=== PATIENT | male | born 1965 | race Caucasian/White ===

== ENCOUNTER → 2016-08-14 | Outpatient (CLI) | payer OTHER | LOC: BMCIMAGING 07:32 | PROVIDERS: ATTEND Physician Assistant | DX: B18.2 Chronic viral hepatitis C (principal); K82.8 Other specified diseases of gallbladder ==

== ENCOUNTER 2017-05-07 20:49 | Inpatient (IN) | payer OTHER ==
[2017-05-07] MEDS ORDERED: HYDROmorphONE/DILAUDID 1 MG/ML INJ IVP ONE ×2 (21:41→23:32)
[2017-05-07] MEDS ORDERED: ceFAZolin 2 GM in D5W 100 ML IV ONE (22:39)
--- NOTE | 2017-05-07 23:02 | EDPHY ---
H & P Stated Complaint: poss hernia right side groin pain Time Seen by Provider: 05/07/17 21:36 HPI/ROS: Chief complaint: Possible hernia History of present illness: This is a 51-year-old male, currently incarcerated brought to the emergency department by police for evaluation of a possible hernia. Patient reports he was going to the bathroom when he sneezes. He felt pain in his right inguinal region and scrotum. He has noted significant swelling. He is concerned this is a hernia. Pain is persistent. He denies other associated signs or symptoms. He has never had a hernia or hernia surgery before. Review of systems: A 10 point review of systems was obtained and other than described above was negative - Personal History Current Tetanus/Diphtheria Vaccine: Yes Current Tetanus Diphtheria and Acellular Pertussis (TDAP): Yes Tetanus Vaccine Date: <10 years - Medical/Surgical History Hx Asthma: No Hx Chronic Respiratory Disease: No Hx Diabetes: No Hx Cardiac Disease: No Hx Renal Disease: No Hx Cirrhosis: No Hx Alcoholism: No Hx HIV/AIDS: No Hx Splenectomy or Spleen Trauma: No Other PMH: pmh:none. psh: right hand - Social History Smoking Status: Never smoked - Physical Exam Exam: General Appearance: Alert, nontoxic. Eyes: Pupils equal and round no pallor or injection. ENT, Mouth: Mucous membranes moist. Respiratory: There are no retractions, lungs are clear to auscultation. Cardiovascular: Regular rate and rhythm. Gastrointestinal: Abdomen is soft and non tender, no masses, bowel sounds normal. Genitourinary: Swelling in the scrotum and right inguinal region consistent with a inguinal hernia Neurological: Alert and oriented x4. Strength and sensation intact and symmetrical. Skin: Warm and dry, no rashes. Musculoskeletal: Neck is supple non tender. Extremities are symmetrical, full range of motion. Psychiatric: Patient is oriented X 3, there is no agitation. Constitutional: Initial Vital Signs Temperature (C) 36.9 C 05/07/17 20:51 Heart Rate 90 05/07/17 20:51 Respiratory Rate 16 05/07/17 20:51 Blood Pressure 136/91 H 05/07/17 20:51 O2 Sat (%) 99 05/07/17 20:51 O2 Delivery Mode Room Air Allergies/Adverse Reactions: No Known Allergies Allergy (Verified 05/07/17 20:55) Home Medications: Medication Instructions Recorded NK [No Known Home Meds] 05/07/17 Medical Decision Making ED Course/Re-evaluation: Patient discussed with my secondary supervising physician Dr. Yaw Aldana. Patient presents to the emergency department concerned he has a hernia. He does appear to have an incarcerated inguinal hernia. On-call surgeon, Dr. Radha Howe is consulted. She will take the patient to the operating room this evening. The plan has been discussed with the patient voiced understanding and agreement with it. Differential Diagnosis: Included but not limited to direct and indirect hernia, incarcerated hernia, strangulated hernia - Data Points Medications Given: Discontinued Medications Hydromorphone HCl (Dilaudid) 1 mg IVP EDNOW ONE Stop: 05/07/17 21:42 Last Admin: 05/07/17 21:54 Dose: 1 mg Departure - Departure Disposition: [facility] Inpatient Acute Clinical Impression: Hernia Condition: Good Referrals: NONE *PRIMARY CARE P,. [Primary Care Provider] - As per Instructions
--- NOTE | 2017-05-07 23:32 | GHP ---
[f rep st] HISTORY AND PHYSICAL DATE OF ADMISSION: 05/07/2017 REFERRING PHYSICIAN: Yaw Campbell MD CHIEF COMPLAINT: Incarcerated right inguinal hernia. HISTORY OF PRESENT ILLNESS: A 51-year-old, who was brought to the emergency department by the police for evaluation of a possible hernia. He is currently incarcerated. He was going the restroom when all of a sudden it stopped and he felt abrupt pain in his right inguinal region and scrotum. Nothing has made the pain better. He has tried Tylenol. He has never had this problem before. PAST MEDICAL HISTORY: None. PAST SURGICAL HISTORY: Right hand surgery. SOCIAL HISTORY: He is incarcerated. He has a 1-year-old daughter. He does not use tobacco products . REVIEW OF SYSTEMS: 10-point review of systems negative. PHYSICAL EXAMINATION: VITAL SIGNS: 36.9, 90, 136/91, 16, 99%. GENERAL: Pleasant, well-nourished, well-groomed man, lying on bed. He is in obvious discomfort. HEENT: Normocephalic. No gross heari ng deficits. Mucous membranes moist. Pupils equal and round. No scleral icterus. LUNGS: Clear to auscultation bilaterally. No increased work of breathing. CARDIAC: Regular rate. No peripheral e nikolay. ABDOMEN: Bowel sounds are present. It is soft. : Normal male genitalia. He does have an obvious right inguinal hernia that is nonreducible. It is very painful. SKIN: Warm and dry. He d oes have tattoos. MUSCULOSKELETAL: Normal nails. PSYCH: Mood and affect normal. NEURO: Grossly intact. IMPRESSION AND PLAN: The patient is a 51-year-old with an incarcerated right inguinal hernia. I maris l take him to the operating room for an open right inguinal hernia repair with mesh. The risks and b enefits, including, but not limited to, stroke, heart attack, , blood clots, infection, bleeding , damage to surrounding structures, including losing the testicle were discussed. He had his questio ns answered to his satisfaction and signed the informed consent. /[id number]/MODL
[2017-05-07] MEDS ORDERED: LIDOCAINE 1% 300 MG/30 ML SDV ONE (23:40)
[2017-05-07] MEDS ORDERED: BUPIVACAINE 0.5% 30 ML SDV ONE (23:41)
--- NOTE | 2017-05-08 00:31 | CPEKG ---
Heart Rate: 73 RR Interval: 822 P-R Interval: 128 QRSD Interval: 94 QT Interval: 432 QTC Interval: 476 P [place]: 31 QRS [place]: 0 T Wave [place]: 76 EKG Severity - ABNORMAL ECG - EKG Impression: SINUS RHYTHM EKG Impression: PROBABLE LEFT VENTRICULAR HYPERTROPHY EKG Impression: BORDERLINE PROLONGED QT INTERVAL Electronically Signed By: Niraj Garcia 12-May-2017 10:23:13
[2017-05-08 00:45] LABS: PLATELET COUNT 252 10^3/uL (150-400)
--- NOTE | 2017-05-08 00:47 | PDANEPAE ---
ANE History of Present Illness Patient presents for emergent incarcerated right inguinal hernia repair ANE Past Medical History - Pulmonary History Hx Oxygen in Use at Home: No Hx Sleep Apnea: No - Endocrine History Hx Diabetes: No ANE Review of Systems Review of Systems: ANE Patient History - Allergies Allergies/Adverse Reactions: No Known Allergies Allergy (Verified 05/07/17 20:55) - Home Medications Home Medications: NK [No Known Home Meds] 05/07/17 [Last Taken Unknown] - NPO status NPO Since - Liquids (Date): 05/07/17 NPO Since - Liquids (Time): 16:15 NPO Since - Solids (Date): 05/07/17 NPO Since - Solids (Time): 16:15 - Anes Hx Anes Hx: no prior problems - Smoking Hx Smoking Status: Never smoked ANE Labs/Vital Signs - Labs Result Diagrams: 05/08/17 00:00 05/08/17 00:00 - Vital Signs Blood Pressure: 115/86 Heart Rate: 75 Respiratory Rate: 16 O2 Sat (%): 95 Height: 187.96 cm Weight: 90.718 kg ANE Physical Exam - Airway Neck exam: FROM Mallampati Score: Class 1 Mouth exam: normal dental/mouth exam - Pulmonary Pulmonary: no respiratory distress - Cardiovascular Cardiovascular: regular rate and rhythym - ASA Status ASA Status: I ANE Anesthesia Plan Anesthesia Plan: general endotracheal anesthesia (RBA discussed)
[2017-05-08] MEDS ORDERED: LR 1,000 ML IV ONE (00:59)
[2017-05-08] MEDS ORDERED: CEFAZOLIN 1 GM/DEXTROSE/50 ML BAG IV ONE (01:00)
[2017-05-08] MEDS ORDERED: fentaNYL 100 MCG/2 ML INJ ONE ×3 (01:03→02:32)
[2017-05-08] MEDS ORDERED: PROPOFOL 200 MG/20 ML VIAL ONE (01:03)
[2017-05-08] MEDS ORDERED: OXYCODONE/APAP 5/325 TAB PO PRN (01:54)
[2017-05-08] MEDS ORDERED: LR 500 ML IV PRN (01:54)
[2017-05-08] MEDS ORDERED: HYDROCODONE/APAP 5/325 TAB PO PRN (01:54)
[2017-05-08] MEDS ORDERED: NALOXONE HCL 0.4 MG/ML INJ IVP PRN (01:54)
[2017-05-08] MEDS ORDERED: ONDANSETRON 4 MG/2 ML VIAL IVP PRN ×2 (01:54→02:28)
[2017-05-08] MEDS ORDERED: SUGAMMADEX SODIUM 200 MG/2 ML VIAL IVP ONE (02:11)
[2017-05-08] MEDS ORDERED: ONDANSETRON 4 MG/2 ML VIAL ONE (02:12)
[2017-05-08] MEDS ORDERED: DEXAMETHASONE 4 MG/ML VIAL ONE (02:12)
--- NOTE | 2017-05-08 02:27 | POSTOPPROG ---
Post Op Note Date of Operation: 05/08/17 Surgeon: Radha Howe Anesthesiologist: jeff Anesthesia: GET(General Endotracheal) Pre-op Diagnosis: incarcerated RIH Post-op Diagnosis: Same Indication: 51 yo with painful incarcerated RIH Procedure: open RIH with mesh Findings: Large hernia sac Inf/Abcess present in the surg proc area at time of surgery?: No EBL: Minimal Specimen(s): hernia sac
[2017-05-08] MEDS: fentaNYL 100 MCG/2 ML INJ IVP PRN ×2 (02:34→02:40)
--- NOTE | 2017-05-08 02:34 | POSTANESTH ---
Post Anesthetic Evaluation Cardiovascular Status: Similar to Pre-Op Cond Respiratory Status: Similar to Pre-op Cond. Level of Consciousness/Mental Status: Alert and Oriented Pain Control: Adequate, Prn Tx Ordered Nausea/Vomiting Control: Adequate, Prn Tx Ordered Complications Possibly Related to Anesthesia: None Noted
[2017-05-08] MEDS: KETOROLAC 15 MG/1 ML SDV IVP SCH ×2 (05:38→11:49)
[2017-05-08 06:34] VITALS: RESP 16
[2017-05-08] MEDS: HYDROCODONE/APAP 5/325 TAB PO PRN ×2 (06:37→11:50)
[2017-05-08 08:39] VITALS: BP 113/73; PULSE 88; TEMP 97.4; O2SAT 94
[2017-05-08] MEDS ORDERED: FLU VACC QS 2017-18 (3YR+)/PF 0.5 ML SYR (FLUARIX QUAD) IM ONE (08:41)
--- NOTE | 2017-05-08 10:17 | SOAPPROG ---
SOAP Progress Note Assessment/Plan: Assessment/Plan: 51yo M POD#1 s/p open right inguinal hernia repair with mesh for incarcerated hernia Voiding spontaneously Avoid heavy lifting, pushing, pulling >15lbs x 6 weeks S: pain when he got up to go to the bathroom O: laying in bed, comfortable, NAD No increased WOB No scrotal or penile swelling or ecchymosis Dressing intact Objective: Vital Signs Temp Pulse Resp BP Pulse Ox 36.3 C 88 16 113/73 94 05/08/17 08:00 05/08/17 08:00 05/08/17 08:00 05/08/17 08:00 05/08/17 08:00 Laboratory Results 05/08/17 00:00 05/08/17 00:00 05/07/17 05/08/17 05/09/17 05:59 05:59 05:59 Intake Total 855 Output Total 10 Balance 845 ICD10 Worksheet Patient Problems: Problems Problem Status Onset Hernia Acute
--- NOTE | 2017-05-08 12:50 | ASDISCHSUM ---
Discharge Information Plan Status:Home with No Needs Medically Cleared to Leave: Discharge Date:05/08/2017 12:26 PM CM D/C Disposition:Law Enforcement/Court/Fpc ADT D/C Disposition:Law Enforcement/Court/Fpc Projected Discharge Date:05/08/2017 12:26 PM Transportation at D/C: Discharge Delay Reason: Follow-Up Date:05/08/2017 12:26 PM Discharge Slot: Final Diagnosis: Placement Information Patient Contact Information Contact Name:MARIS Relationship: Address:[address] [address] City:[place] Alternate Phone: [facility]/Zip Code:[place] [address] Email: Financial Information Financial Class:Commercial Primary Plan Desc:[facility] Primary Plan Number:[id number] Secondary Plan Desc: Secondary Plan Number: Assessment Information [facility] CM Progress Note CM Note CM Note Notes: Pt medically stable for return to [facility]. Date Signed: 05/08/2017 12:50 PM Electronically Signed By:SOFIA Sharpe Intervention Information
== END 2017-05-08 12:26 | DRG 355 ==
LOC: EEVIPCON 20:49 → OBSVTOIN 22:59 → F3N 05-08 00:45
PROVIDERS: ADMIT Surgery; ATTEND Surgery
PROC: 0WUF0JZ Supplement Abdominal Wall with Synthetic Substitute, Open Approach (ICD-10-PCS; principal; 2017-05-08 01:03)
DX: K40.30 Unilateral inguinal hernia, with obstruction, without gangrene, not specified as recurrent (principal); Z23 Encounter for immunization
CPT/HCPCS: 96374; C1781; G0008; J0690; J1100; J1170; J1885; J2405; J2704; J3010

== ENCOUNTER 2017-05-30 07:16 | Emergency (ER) | payer SELFPAY ==
[2017-05-30 07:23] VITALS: TEMP 98.8
[2017-05-30] MEDS ORDERED: ONDANSETRON 4 MG/2 ML VIAL IVP ONE (07:35)
[2017-05-30] MEDS ORDERED: fentaNYL 100 MCG/2 ML INJ IVP ONE (07:35)
[2017-05-30] MEDS ORDERED: NS 1,000 ML IV ONE (07:35)
--- NOTE | 2017-05-30 07:56 | EDPHY ---
H & P Stated Complaint: lower abdo pain since last night, hernia surgery 3 weeks ago. Time Seen by Provider: 05/30/17 07:35 HPI/ROS: CHIEF COMPLAINT: Testicular pain HISTORY OF PRESENT ILLNESS: The patient is a 51 y/o male complaining of severe testicular pain onset this morning around 03:00, about 4.5 hours ago. He was admitted three weeks ago on 05/07/17 for an incarcerated right inguinal hernia that required surgical repair with mesh. He was discharged back to assisted following that surgery. It's unclear if he's had any issues following the surgery until early this morning when he developed severe bilateral testicular pain. He describes the pain as squeezing and says it "comes in spasms." He has associated lower abdominal pain that radiates to his testicles. The pain is too severe for him to walk. He denies fever, chills, urinary symptoms, vomiting, diarrhea, recent illness, or recent trauma. History somewhat limited as patient is mumbling and intermittently will stop answering questions. REVIEW OF SYSTEMS: Constitutional: No fever, no chills Eyes: No visual changes ENT: No sore throat Respiratory: No cough, no shortness of breath Cardiac: No chest pain Gastrointestinal: No nausea, no vomiting, +abdominal pain Genitourinary: see HPI Musculoskeletal: No leg pain or swelling Skin: No rash Neurological: No headache, no numbness, no weakness Psychiatric: No depression - Personal History Current Tetanus Diphtheria and Acellular Pertussis (TDAP): Yes Tetanus Vaccine Date: <10 years - Medical/Surgical History PMH: PMH includes: 1. Right inguinal hernia repair with mesh 2017 2. Right hand surgery Prior medical records reviewed including admission 05/07/17 for hernia repair. Hx Asthma: No Hx Chronic Respiratory Disease: No Hx Diabetes: No Hx Cardiac Disease: No Hx Renal Disease: No Hx Cirrhosis: No Hx Alcoholism: No Hx HIV/AIDS: No Hx Splenectomy or Spleen Trauma: No Other PMH: psh: right hand. Right groin hernia surgery Apr 2017. - Social History Smoking Status: Never smoked Additional Social History: Recently incarcerated. Denies tobacco use. Reports he has a friend to stay with. - Physical Exam Exam: General Appearance: Alert, no distress, appears uncomfortable Eyes: Pupils equal and round, no conjunctival pallor or injection ENT, Mouth: Mucous membranes moist Neck: Normal inspection Respiratory: Lungs are clear to auscultation Cardiovascular: Regular rate and rhythm Gastrointestinal: Abdomen is soft, lower abdominal tenderness, fullness along both inguinal areas, tenderness to right inguinal area : Bilateral testicular tenderness with scrotal swelling and faint overlying erythema Neurological: A&O, nonfocal, normal gait Skin: Warm and dry, no rash Extremities: Nontender, no pedal edema Psychiatric: Anxious, odd affect Constitutional: Initial Vital Signs Temperature (C) 37.1 C 05/30/17 07:18 Heart Rate 81 05/30/17 07:18 Respiratory Rate 20 05/30/17 07:18 Blood Pressure 162/108 H 05/30/17 07:18 O2 Sat (%) 99 05/30/17 07:18 O2 Delivery Mode Room Air O2 (L/minute) 2 Allergies/Adverse Reactions: No Known Allergies Allergy (Verified 05/07/17 20:55) Home Medications: Medication Instructions Recorded Acetaminophen [Tylenol 325mg (*)] 325 - 650 mg PO Q6HRS PRN 05/08/17 Sulfamethox/Tmp 800/160 mg 1 tab PO BID #14 tab 05/30/17 [Bactrim Ds] Medical Decision Making - Diagnostics Imaging Results: Imaging Impressions Testicular Ultrasound 05/30/17 07:52 Impression: 1. Thickened right scrotal skin, likely from postsurgical swelling in the inguinal region. 2. Query thrombosed outflow vein of the right testicle. This would correlate to pain, as well as lack of Dopplerable venous flow in the right testicle. 3. Positive arterial flow on both sides. 4. Small right testicular hydrocele. Findings and recommendations discussed with Dr. Dariela Del Rosario at 0900 hours on May 30, 2017. Final report concurs with initial preliminary interpretation. Comment: The patient may improve with medical therapy, such as pain control and ibuprofen or other anti-inflammatories. If pain persists, repeat testicular ultrasound is suggested to check status of potential worsening testicular swelling, if patient indeed has venous thrombosis. Imaging: Discussed imaging studies w/ subsurface augmentee operator Radiologist ED Course/Re-evaluation: This is an anxious 51 y/o male who presents with acute bilateral testicular pain and scrotal swelling onset this morning around 03:00, 4.5 hours ago. He has bilateral testicular tenderness with scrotal swelling and erythema, tenderness in his right inguinal area, and lower abdominal tenderness. He is afebrile here. Plan for IV, labs, UA, pain management, and testicular US. 1L IV NS, 4mg IV Zofran, and 100mcg IV Fentanyl administered. US shows testicular vein thrombosis with good arterial flow. Labs unremarkable. Reassessed patient and discussed results with him. He is sleeping and snoring upon my entrance to the room and needed to be awakened He says his pain is better. He is unsure if he has a follow up appointment scheduled with Dr. Howe , the surgeon that performed his hernia repair. He continues to seemingly fall asleep during my discussion with him. He tells me he has a place to stay with a friend for the next few weeks. 30mg IV Toradol ordered. 0937: Consulted with Dr. Howe, surgeon. She saw patient in her clinic 10 days ago for the same complaint and recommended an ultrasound. She recommends treating with Bactrim and following up with her in the office in one week. Discussed this plan with the patient. Recommended ibuprofen for pain. Return precautions discussed. Differential Diagnosis: Differential diagnosis includes though it is not limited to testicular torsion epididymitis, hydrocele, abscess, recurrent inguinal hernia, scrotal cellulitis. - Data Points Laboratory Results: Laboratory Results 05/30/17 07:45 05/30/17 07:40 05/30/17 05/30/17 07:45 07:40 WBC 7.05 10^3/uL 10^3/uL (3.80-9.50) RBC 5.15 10^6/uL 10^6/uL (4.40-6.38) Hgb 16.3 g/dL g/dL (13.7-17.5) Hct 45.5 % % (40.0-51.0) MCV 88.3 fL fL (81.5-99.8) MCH 31.7 pg pg (27.9-34.1) MCHC 35.8 g/dL g/dL (32.4-36.7) RDW 13.0 % % (11.5-15.2) Plt Count 310 10^3/uL 10^3/uL (150-400) MPV 9.6 fL fL (8.7-11.7) Neut % (Auto) 69.6 % % (39.3-74.2) Lymph % (Auto) 22.4 % % (15.0-45.0) Hooker % (Auto) 7.2 % % (4.5-13.0) Eos % (Auto) 0.4 % L % (0.6-7.6) Baso % (Auto) 0.1 % L % (0.3-1.7) Nucleat RBC Rel Count 0.0 % % (0.0-0.2) Absolute Neuts (auto) 4.90 10^3/uL 10^3/uL (1.70-6.50) Absolute Lymphs (auto) 1.58 10^3/uL 10^3/uL (1.00-3.00) Absolute Monos (auto) 0.51 10^3/uL 10^3/uL (0.30-0.80) Absolute Eos (auto) 0.03 10^3/uL 10^3/uL (0.03-0.40) Absolute Basos (auto) 0.01 10^3/uL L 10^3/uL (0.02-0.10) Absolute Nucleated RBC 0.00 10^3/uL 10^3/uL (0-0.01) Immature Gran % 0.3 % % (0.0-1.1) Immature Gran # 0.02 10^3/uL 10^3/uL (0.00-0.10) Sodium 141 mEq/L mEq/L (135-145) Potassium 4.7 mEq/L mEq/L (3.5-5.2) Chloride 104 mEq/L mEq/L (97-110) Carbon Dioxide 23 mEq/l mEq/l (22-31) Anion Gap 14 mEq/L mEq/L (8-16) BUN 27 mg/dL H mg/dL (7-23) Creatinine 1.0 mg/dL mg/dL (0.7-1.3) Estimated GFR > 60 Glucose 120 mg/dL H mg/dL (70-100) Calcium 10.3 mg/dL mg/dL (8.5-10.4) Medications Given: Discontinued Medications Fentanyl (Sublimaze) 100 mcg IVP EDNOW ONE Stop: 05/30/17 07:36 Last Admin: 05/30/17 07:44 Dose: 100 mcg Sodium Chloride (Ns) 1,000 mls @ 0 mls/hr IV ONCE ONE PRN Reason: Wide Open Stop: 05/30/17 07:36 Last Admin: 05/30/17 07:44 Dose: 1,000 mls Ketorolac Tromethamine (Toradol) 30 mg IVP EDNOW ONE Stop: 05/30/17 09:22 Last Admin: 05/30/17 09:49 Dose: 30 mg Ondansetron HCl (Zofran) 4 mg IVP EDNOW ONE Stop: 05/30/17 07:36 Last Admin: 05/30/17 07:44 Dose: 4 mg Trimethoprim/Sulfamethoxazole (Bactrim Ds) 1 ea PO EDNOW ONE PRN Reason: Protocol Stop: 05/30/17 09:41 Last Admin: 05/30/17 09:51 Dose: 1 ea Departure - Departure Disposition: Home, Routine, Self-Care Clinical Impression: thrombosis of testicular vein Condition: Good Instructions: Sulfamethoxazole/Trimethoprim (By mouth), Testicle Pain (ED) Additional Instructions: 1. Take Bactrim as prescribed. Be sure to complete the entire prescription. 2. Take 600mg ibuprofen every 6-8 hours as needed for pain over the next few days. 3. Follow up with Dr. Howe's office in one week. Please call today to make this appointment. 4. Return to the ED for worsening of condition. Referrals: Radha Howe MD [Medical Doctor] - As per Instructions Prescriptions: Sulfamethox/Tmp 800/160 mg [Bactrim Ds] 1 tab PO BID #14 tab Report Scribed for: Dariela Del Rosario Report Scribed by: Veronica Hanna Date of Report: 05/30/17 Time of Report: 07:56 Physician Review and Approval Statement: 05/30/17 07:56 Portions of this note were transcribed by a medical office secretary. I personally performed a history, physical exam, medical decision making, and confirmed accuracy of information the transcribed note.
[2017-05-30 07:59] LABS: PLATELET COUNT 310 10^3/uL (150-400)
[2017-05-30] MEDS ORDERED: KETOROLAC 15 MG/1 ML SDV IVP ONE (09:21)
[2017-05-30] MEDS ORDERED: SULFAMETHOX/TMP 800/160 MG 1 TAB PO ONE (09:40)
[2017-05-30] MEDS ORDERED: KETOROLAC 15 MG/1 ML SDV ONE (09:46)
[2017-05-30 09:57] VITALS: BP 145/101; PULSE 85; RESP 18; O2SAT 97
== END 2017-05-30 10:11 | disposition home or self-care (01) ==
DX: N50.1 Vascular disorders of male genital organs (principal)
CPT/HCPCS: 96374; J1885; J2405; J3010

== ENCOUNTER 2017-05-31 17:33 | Emergency (ER) | payer SELFPAY ==
[2017-05-31 18:31] LABS: PLATELET COUNT 265 10^3/uL (150-400)
[2017-05-31] MEDS ORDERED: KETOROLAC 30 MG/1 ML SDV IVP ONE (18:56)
[2017-05-31] MEDS ORDERED: HYDROmorphONE/DILAUDID 1 MG/ML INJ IVP ONE (19:33)
[2017-05-31 20:39] VITALS: RESP 18
[2017-05-31] MEDS ORDERED: HYDROCOD/APAP 5/325 PREPACK#6 BTL TAKEHOME ONE (21:26)
--- NOTE | 2017-05-31 21:26 | EDPHY ---
H & P Time Seen by Provider: 05/31/17 18:58 HPI/ROS: HPI Postoperative abdominal pain. 51-year-old male by private vehicle with girlfriend. This patient underwent a right-sided incarcerated inguinal hernia repair by Dr. Radha Howe on May 07. At that time he was being discharged to shelter. He was not prescribe pain medications. He was then seen in the emergency department yesterday complaining of testicular pain. 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 He was prescribed NSAIDs for this. He was then discharged. He returns to the emergency department complaining of bilateral lower testicular pain as well as sharp pain in his right lower inguinal area. He reports onset of pain was about 2 hr ago. ROS: Constitutional: No fever, no chills. No weakness. Respiratory: No cough. No shortness of breath. Cardiac: No chest pain, no palpitations. Gastrointestinal: As above, no vomiting, no diarrhea. Genitourinary: No hematuria. No dysuria or increased frequency with urination. As above. Musculoskeletal: No back pain. No neck pain. No myalgias or arthralgias. Skin: No rashes. Neurological: No focal weakness or altered sensation. Past medical history: As above. Social history: Here with his girlfriend. Denies alcohol. Nonsmoker. As above. Physical Exam: General Appearance: Note the patient had been seen by Dr. Radha Howe prior to my evaluation. He was given 30 mg of IV Toradol and 0.5 mg of IV hydromorphone. Alert, at this time his pain is well controlled. He is not in any distress. This patient is responding to questions appropriately and in full sentences. This patient appears well-hydrated and well-nourished. Eyes: Pupils equal and round no pallor or injection. No lid edema, erythema or injection. Respiratory: There are no retractions, lungs are clear to auscultation with good air movement bilaterally. Cardiovascular: Regular rate and rhythm. No murmur. Gastrointestinal: Linear, clean dry and intact inguinal surgical incision healing well, abdomen is soft with mild tenderness over the surgical incision on palpation, no masses, bowel sounds present. No focal tenderness at McBurney' s point. No Clark sign. Testicular exam: He has some thickening and swelling of the lower scrotum which is commonly seen after a inguinal hernia surgical procedure. He has vague tenderness to this area of his lower testicles bilaterally. Normal testicular lie. Normal cremasteric reflex. No clinical evidence of torsion. No significant tenderness over the epididymis bilaterally. No masses appreciated. Normal circumcised penis. Neurological: Motor sensory function is grossly intact. Cranial nerves are normal. Gait is normal. Skin: Warm and dry, no rashes. Musculoskeletal: Neck is supple and nontender. Extremities are symmetrical. All joints range without pain or impingement. Psychiatric: No agitation. No depression. Database: EKG: Imaging: Testicular ultrasound: No torsion. Please see above noted report for further details. Results were discussed with staff radiologist Dr. Lester Ruiz. Procedures: Emergency department course: His vital signs reviewed and are normal. As noted he was seen by Dr. Howe in the emergency department prior to my evaluation of him. He was given the above- noted pain medications. On my evaluation is pain was well controlled. Testicular ultrasound was obtained. 9:15 p.m., I spoke with Dr. Howe. Results of his ultrasound was discussed. We both feel he is safe for discharge. She will see him in her office this week on follow-up. I will prescribe him Vicodin for pain control. 9:35 p.m., patient re-evaluated. He appears comfortable at this time. Results of his ultrasound discussed with him. I do not feel at this time he requires an antibiotic for treatment of epididymitis. I did not feel his pain is related to an infectious etiology. He feels comfortable going home with his girlfriend. He understands his follow-up with Dr. Radha Howe next week. Pain medication dosing discussed with him. Return to emergency department precautions were thoroughly reviewed. All of his questions were answered. He was discharged in good condition with his girlfriend. She is driving. Differential Diagnosis: The differential diagnosis on this patient includes but is not limited to post inguinal hernia surgical pain, possible epididymitis, history of testicular vein thrombosis. Testicular torsion, postsurgical complication unlikely. This represents a partial list of diagnoses considered. These considerations are based on history, physical exam, past history, reassessment and diagnostic testing. Smoking Status: Never smoked Constitutional: Initial Vital Signs Temperature (C) 36.3 C 05/31/17 17:41 Heart Rate 84 05/31/17 17:41 Respiratory Rate 22 H 05/31/17 17:41 Blood Pressure 138/74 H 05/31/17 17:41 O2 Sat (%) 96 05/31/17 17:41 O2 Delivery Mode Room Air Allergies/Adverse Reactions: No Known Allergies Allergy (Verified 05/07/17 20:55) Home Medications: Medication Instructions Recorded Acetaminophen [Tylenol 325mg (*)] 325 - 650 mg PO Q6HRS PRN 05/08/17 Sulfamethox/Tmp 800/160 mg 1 tab PO BID #14 tab 05/30/17 [Bactrim Ds] Hydrocodone/APAP 5/325 [Howells 1 - 2 tab PO Q4-6PRN PRN #14 tab 05/31/17 5/325 (*)] Medical Decision Making - Diagnostics Imaging Results: Imaging Impressions Testicular Ultrasound 05/31/17 19:34 Impression: 1. Probable bilateral epididymitis with possible inflammation of the right spermatic cord. 2. Additional findings, as above. Findings discussed with Librado Magaña MD, on 05/31/2017 at 20:42. - Data Points Laboratory Results: Laboratory Results 05/31/17 18:20 05/31/17 18:20 05/31/17 05/31/17 18:20 18:20 WBC 4.84 10^3/uL 10^3/uL (3.80-9.50) RBC 4.88 10^6/uL 10^6/uL (4.40-6.38) Hgb 15.4 g/dL g/dL (13.7-17.5) Hct 42.6 % % (40.0-51.0) MCV 87.3 fL fL (81.5-99.8) MCH 31.6 pg pg (27.9-34.1) MCHC 36.2 g/dL g/dL (32.4-36.7) RDW 13.2 % % (11.5-15.2) Plt Count 265 10^3/uL 10^3/uL (150-400) MPV 9.6 fL fL (8.7-11.7) Neut % (Auto) 59.2 % % (39.3-74.2) Lymph % (Auto) 32.0 % % (15.0-45.0) [place] % (Auto) 7.0 % % (4.5-13.0) Eos % (Auto) 1.0 % % (0.6-7.6) Baso % (Auto) 0.6 % % (0.3-1.7) Nucleat RBC Rel Count 0.0 % % (0.0-0.2) Absolute Neuts (auto) 2.86 10^3/uL 10^3/uL (1.70-6.50) Absolute Lymphs (auto) 1.55 10^3/uL 10^3/uL (1.00-3.00) Absolute Monos (auto) 0.34 10^3/uL 10^3/uL (0.30-0.80) Absolute Eos (auto) 0.05 10^3/uL 10^3/uL (0.03-0.40) Absolute Basos (auto) 0.03 10^3/uL 10^3/uL (0.02-0.10) Absolute Nucleated RBC 0.00 10^3/uL 10^3/uL (0-0.01) Immature Gran % 0.2 % % (0.0-1.1) Immature Gran # 0.01 10^3/uL 10^3/uL (0.00-0.10) Sodium 139 mEq/L mEq/L (135-145) Potassium 4.2 mEq/L mEq/L (3.5-5.2) Chloride 104 mEq/L mEq/L (97-110) Carbon Dioxide 24 mEq/l mEq/l (22-31) Anion Gap 11 mEq/L mEq/L (8-16) BUN 20 mg/dL mg/dL (7-23) Creatinine 1.0 mg/dL mg/dL (0.7-1.3) Estimated GFR > 60 Glucose 125 mg/dL H mg/dL (70-100) Calcium 9.4 mg/dL mg/dL (8.5-10.4) Medications Given: Discontinued Medications Hydrocodone Bitart/Acetaminophen (Howells 5/325mg Prepack#6) 1 btl TAKEHOME EDNOW ONE Stop: 05/31/17 21:27 Last Admin: 05/31/17 21:37 Dose: 1 btl Hydromorphone HCl (Dilaudid) 0.5 mg IVP EDNOW ONE Stop: 05/31/17 19:34 Last Admin: 05/31/17 19:37 Dose: 0.5 mg Ketorolac Tromethamine (Toradol) 30 mg IVP ONCE ONE Stop: 05/31/17 18:57 Last Admin: 05/31/17 19:12 Dose: 30 mg Departure - Departure Disposition: Home, Routine, Self-Care Clinical Impression: Testicular pain, Lower abdominal pain, Status post right inguinal hernia repair Condition: Good Instructions: Hydrocodone/Acetaminophen (By mouth), Acute Abdominal Pain (DC), Testicle Pain (ED) Additional Instructions: Read and follow provided instructions. Follow-up with Dr. Radha Howe, this week for re-evaluation as discussed. Call her office Saturday morning for appointment time. Ibuprofen dosin mg every 6 hours with meals for the next 3 days only. Take only as needed for pain. Howells/Percocet dosin-2 every 4-6 hours for [address] not drive on this medication. Return to the emergency department for worsening pain, fever, vomiting, testicular swelling or discoloration or other serious concerns. Referrals: Radha Howe MD [Medical Doctor] - As per Instructions Prescriptions: Hydrocodone/APAP 5/325 [Howells 5/325 (*)] 1 - 2 tab PO Q4-6PRN PRN #14 tab PRN Reason: Pain, Moderate
[2017-05-31 21:43] VITALS: BP 136/87; PULSE 74; TEMP 98.6; O2SAT 97
--- NOTE | 2017-05-31 23:18 | GCON ---
[f rep st] CONSULTATION DATE OF CONSULTATION: 05/31/2017 REFERRING PHYSICIAN: Dariela Del Rosario MD CHIEF COMPLAINT: Testicular pain. HISTORY OF PRESENT ILLNESS: The patient is a 51-year-old man on whom I recently performed open right inguinal hernia for incarcerated right inguinal hernia. He returned to the ER with bilateral testic ular pain that radiates up into his abdomen. PHYSICAL EXAM: His testicles have slight ecchymosis and are slightly enlarged. They are exquisitely tender to the touch. There is no evidence of hernia recurrence. His incision is clean, dry, and in tact. IMPRESSION AND PLAN: The patient is a 51-year-old with testicular pain. Ultrasound was performed in the emergency department, and epididymitis was found. There was no evidence of torsion or recurrenc e. He can follow up in my office next week. /[id number]/MODL
== END 2017-05-31 21:44 | disposition home or self-care (01) ==
DX: G89.18 Other acute postprocedural pain (principal); N50.819 Testicular pain, unspecified; R10.30 Lower abdominal pain, unspecified
CPT/HCPCS: 96374; J1170; J1885

== ENCOUNTER 2017-08-09 20:16 | Emergency (ER) | payer MEDICAID, OTHER ==
[2017-08-09] MEDS ORDERED: NS 1,000 ML IV ONE (20:36)
[2017-08-09] MEDS ORDERED: HYDROmorphONE/DILAUDID 2 MG/ML INJ IVP ONE (20:36)
[2017-08-09] MEDS ORDERED: ONDANSETRON 4 MG/2 ML VIAL IVP ONE (20:36)
--- NOTE | 2017-08-09 20:39 | EDPHY ---
H & P Stated Complaint: PAIN R GROIN AND TESTICLE/ INGUINAL HERNIA REPAIR 2 MS PRIOR Time Seen by Provider: 08/09/17 20:32 HPI/ROS: CHIEF COMPLAINT: Right inguinal pain HISTORY OF PRESENT ILLNESS: Patient is a 51-year-old man with a history of right inguinal hernia repair 2 months ago here by Dr. Radha Howe. He had been recovering well until today when he was lifting a box any felt a sudden pain in his right groin. He has had continued pain in that region for the last 3-4 hours. No vomiting. No fever. He states that it hurt especially when he had a bowel movement just a few minutes ago. No blood in his stool. No blood in his urine. No flank pain REVIEW OF SYSTEMS: Constitutional: denies: chills, fever, recent illness, recent injury EENTM: denies: blurred vision, double vision, nose congestion Respiratory: denies: cough, shortness of breath Cardiac: denies: chest pain, irregular heart rate, lightheadedness, palpitations Gastrointestinal/Abdominal: See HPI Genitourinary: denies: dysuria, frequency, hematuria, pain Musculoskeletal: denies: joint pain, muscle pain Skin: denies: lesions, rash, jaundice, bruising Neurological: denies: headache, numbness, paresthesia, tingling, dizziness, weakness Hematologic/Lymphatic: denies: blood clots, easy bleeding, easy bruising Immunologic/allergic: denies: HIV/AIDS, transplant EXAM: GENERAL: Well-appearing, well-nourished and in no acute distress. HEAD: Atraumatic, normocephalic. EYES: Pupils equal round and reactive to light, extraocular movements intact, sclera anicteric, conjunctiva are normal. ENT: TMs normal, nares patent, oropharynx clear without exudates. Moist mucous membranes. NECK: Normal range of motion, supple without lymphadenopathy or JVD. LUNGS: Breath sounds clear to auscultation bilaterally and equal. No wheezes rales or rhonchi. HEART: Regular rate and rhythm without murmurs, rubs or gallops. ABDOMEN: Palpable small right inguinal hernia, mildly tender, no dehiscence, no erythema, soft, normoactive bowel sounds. No guarding, no rebound. No masses appreciated. BACK: No CVA tenderness, no spinal tenderness, step-offs or deformities EXTREMITIES: Normal range of motion, no pitting or edema. No clubbing or cyanosis. NEUROLOGICAL: Cranial nerves II through XII grossly intact. Normal speech, normal gait. 5/5 strength, normal movement in all extremities, normal sensation PSYCH: Normal mood, normal affect. SKIN: Warm, dry, normal turgor, no visible rashes or lesions. Source: Patient Exam Limitations: No limitations - Personal History Current Tetanus Diphtheria and Acellular Pertussis (TDAP): Yes Tetanus Vaccine Date: <10 years - Medical/Surgical History Hx Asthma: No Hx Chronic Respiratory Disease: No Hx Diabetes: No Hx Cardiac Disease: No Hx Renal Disease: No Hx Cirrhosis: No Hx Alcoholism: No Hx HIV/AIDS: No Hx Splenectomy or Spleen Trauma: No Other PMH: psh: right hand. Right groin hernia surgery Apr 2017. - Family History Significant Family History: No pertinent family hx - Social History Smoking Status: Never smoked Alcohol Use: Sober Drug Use: None Constitutional: Initial Vital Signs Temperature (C) 36.6 C 08/09/17 20:22 Heart Rate 80 08/09/17 20:22 Respiratory Rate 16 08/09/17 20:22 Blood Pressure 156/100 H 08/09/17 20:22 O2 Sat (%) 97 08/09/17 20:22 O2 Delivery Mode Room Air Allergies/Adverse Reactions: No Known Allergies Allergy (Verified 05/07/17 20:55) Home Medications: Medication Instructions Recorded oxyCODONE/APAP 5/325 [Percocet 1 - 2 tab PO Q4H PRN #10 tab 08/09/17 5/325 (*)] Medical Decision Making ED Course/Re-evaluation: 9:50 p.m. the patient is feeling much better. He would like another dose of pain medicine before he goes as well as a prescription. We discussed elective repair of his recurrent hernia. I discussed the case with Dr. Murali Lucia. He agrees with discharge and follow up with Dr. Howe. He will notify Dr. Cantu tomorrow who is on-call for the weekend. Differential Diagnosis: Partial list of the Differential diagnosis considered include but were not limited to; inguinal hernia, incarceration and although unlikely based on the history and physical exam, I also considered kidney stone, urinary tract infection, appendicitis. I discussed these differential diagnoses and the plan with the patient as well as the usual and expected course. The patient understands that the diagnosis is provisional and that in medicine we are not always correct and that further workup is often warranted. Usual and customary warnings were given. All of the patient's questions were answered. The patient was instructed to return to the emergency department should the symptoms at all worsen or return, otherwise to followup with the physician as we discussed. - Data Points Laboratory Results: Laboratory Results 08/09/17 20:44 08/09/17 20:44 Medications Given: Discontinued Medications Hydromorphone HCl (Dilaudid) 1 mg IVP EDNOW ONE Stop: 08/09/17 20:37 Last Admin: 08/09/17 20:51 Dose: 1 mg Hydromorphone HCl (Dilaudid) 1 mg IVP EDNOW ONE Stop: 08/09/17 22:11 Last Admin: 08/09/17 22:13 Dose: 1 mg Sodium Chloride (Ns) 1,000 mls @ 0 mls/hr IV EDNOW ONE; Wide Open PRN Reason: Protocol Stop: 08/09/17 20:37 Last Admin: 08/09/17 20:50 Dose: 1,000 mls Ondansetron HCl (Zofran) 4 mg IVP EDNOW ONE Stop: 08/09/17 20:37 Last Admin: 08/09/17 20:51 Dose: 4 mg Departure - Departure Disposition: Home, Routine, Self-Care Clinical Impression: Right inguinal hernia Condition: Good Instructions: Inguinal Hernia (ED) Referrals: NONE *PRIMARY CARE P,. [Primary Care Provider] - As per Instructions Radha Howe MD [Medical Doctor] - 2-3 days, call for appt. Prescriptions: oxyCODONE/APAP 5/325 [Percocet 5/325 (*)] 1 - 2 tab PO Q4H PRN #10 tab PRN Reason: Pain, Severe
[2017-08-09 20:51] LABS: PLATELET COUNT 226 10^3/uL (150-400)
[2017-08-09] MEDS ORDERED: IOPAMIDOL (ISOVUE-300) 100 ML BTL ONE (21:09)
[2017-08-09] MEDS ORDERED: HYDROmorphONE/DILAUDID 1 MG/ML INJ IVP ONE (22:10)
[2017-08-09] MEDS ORDERED: HYDROmorphONE/DILAUDID 2 MG/ML INJ ONE (22:11)
[2017-08-09 22:32] VITALS: BP 137/72
== END 2017-08-09 22:32 | disposition home or self-care (01) ==
DX: K40.90 Unilateral inguinal hernia, without obstruction or gangrene, not specified as recurrent (principal); E86.9 Volume depletion, unspecified
CPT/HCPCS: 96374; J1170; J2405; Q9967

== ENCOUNTER 2017-10-25 19:45 | Emergency (ER) | payer MEDICAID ==
[2017-10-25] MEDS ORDERED: KETOROLAC 30 MG/1 ML SDV IVP ONE (19:59)
[2017-10-25] MEDS ORDERED: NS 1,000 ML IV ONE (19:59)
[2017-10-25] MEDS ORDERED: ONDANSETRON 4 MG/2 ML VIAL IVP ONE (19:59)
--- NOTE | 2017-10-25 20:05 | EDPHY ---
H & P Stated Complaint: R flank pain Time Seen by Provider: 10/25/17 19:53 HPI/ROS: CHIEF COMPLAINT: Right inguinal pain HISTORY OF PRESENT ILLNESS: The patient is a 52-year-old man who comes to the emergency department complaining of right inguinal pain intermittent for the last 10 days. He had inguinal hernia repair it several months ago but had to have it redone August 28 because of recurrence. The surgeries were performed by Dr. Radha Howe. Patient states that he had been recovering well until about 10 days ago. I saw him for similar complaints in July and at that time performed a CT scan that revealed a recurrent hernia. No sign of kidney stones or aneurysms etc. Normal appendix. He denies fevers. He states that he has felt nauseous but has not vomited. No diarrhea. No rashes. No discharge or dysuria. he states that the pain was in his back a few days ago and does radiate to his right testicle. REVIEW OF SYSTEMS: Constitutional: denies: chills, fever, recent illness, recent injury EENTM: denies: blurred vision, double vision, nose congestion Respiratory: denies: cough, shortness of breath Cardiac: denies: chest pain, irregular heart rate, lightheadedness, palpitations Gastrointestinal/Abdominal: denies: abdominal pain, diarrhea, nausea, vomiting, blood streaked stools Genitourinary: See HPI Musculoskeletal: denies: joint pain, muscle pain Skin: denies: lesions, rash, jaundice, bruising Neurological: denies: headache, numbness, paresthesia, tingling, dizziness, weakness Hematologic/Lymphatic: denies: blood clots, easy bleeding, easy bruising Immunologic/allergic: denies: HIV/AIDS, transplant EXAM: GENERAL: Well-appearing, well-nourished and in no acute distress. HEAD: Atraumatic, normocephalic. EYES: Pupils equal round and reactive to light, extraocular movements intact, sclera anicteric, conjunctiva are normal. ENT: TMs normal, nares patent, oropharynx clear without exudates. Moist mucous membranes. NECK: Normal range of motion, supple without lymphadenopathy or JVD. LUNGS: Breath sounds clear to auscultation bilaterally and equal. No wheezes rales or rhonchi. HEART: Regular rate and rhythm without murmurs, rubs or gallops. ABDOMEN: Soft, nontender, normoactive bowel sounds. No guarding, no rebound. No masses appreciated. : Normal testicular exam, no palpable hernias with coughing. No penile or scrotal swelling or discharge. Normal cremasteric BACK: No CVA tenderness, no spinal tenderness, step-offs or deformities EXTREMITIES: Normal range of motion, no pitting or edema. No clubbing or cyanosis. NEUROLOGICAL: Cranial nerves II through XII grossly intact. Normal speech, normal gait. 5/5 strength, normal movement in all extremities, normal sensation PSYCH: Normal mood, normal affect. SKIN: Warm, dry, normal turgor, no visible rashes or lesions. Source: Patient Exam Limitations: No limitations - Personal History Current Tetanus/Diphtheria Vaccine: Unsure Current Tetanus Diphtheria and Acellular Pertussis (TDAP): Unsure Tetanus Vaccine Date: <10 years - Medical/Surgical History Hx Asthma: No Hx Chronic Respiratory Disease: No Hx Diabetes: No Hx Cardiac Disease: No Hx Renal Disease: No Hx Cirrhosis: No Hx Alcoholism: No Hx HIV/AIDS: No Hx Splenectomy or Spleen Trauma: No Other PMH: psh: right hand. Right groin hernia surgery Apr 2017. hernia & repair - Family History Significant Family History: No pertinent family hx - Social History Smoking Status: Never smoked Alcohol Use: None Constitutional: Initial Vital Signs Temperature (C) 36.6 C 10/25/17 19:47 Heart Rate 107 H 10/25/17 19:47 Respiratory Rate 20 10/25/17 19:47 Blood Pressure 142/79 H 10/25/17 19:47 O2 Sat (%) 98 10/25/17 19:47 O2 Delivery Mode Room Air Allergies/Adverse Reactions: No Known Allergies Allergy (Verified 05/07/17 20:55) Home Medications: Medication Instructions Recorded oxyCODONE/APAP 5/325 [Percocet 1 - 2 tab PO Q4H PRN #10 tab 08/09/17 5/325 (*)] Docusate Sodium [Colace] 100 mg PO TID #30 capsule 10/25/17 Medical Decision Making - Diagnostics Imaging: Discussed imaging studies w/ at home independent call center agent Radiologist ED Course/Re-evaluation: 8:45 p.m. the patient is feeling much better. We discussed the CT scan which is reassuring that shows constipation and distended stomach. He states that he had a very large meal just before coming in because he had not eaten all day. His abdominal exam is currently benign. I will prescribe him a stool softener. He is otherwise reassured. His lab work is reassuring. Differential Diagnosis: Partial list of the Differential diagnosis considered include but were not limited to; constipation, hernia, kidney stone and although unlikely based on the history and physical exam, I also considered urine infection, aneurysm, dissection. I discussed these differential diagnoses and the plan with the patient as well as the usual and expected course. The patient understands that the diagnosis is provisional and that in medicine we are not always correct and that further workup is often warranted. Usual and customary warnings were given. All of the patient's questions were answered. The patient was instructed to return to the emergency department should the symptoms at all worsen or return, otherwise to followup with the physician as we discussed. - Data Points Laboratory Results: Laboratory Results 10/25/17 20:00 10/25/17 20:00 Medications Given: Discontinued Medications Sodium Chloride (Ns) 1,000 mls @ 0 mls/hr IV EDNOW ONE; Wide Open PRN Reason: Protocol Stop: 10/25/17 20:00 Last Admin: 10/25/17 20:20 Dose: 1,000 mls Ketorolac Tromethamine (Toradol) 15 mg IVP EDNOW ONE Stop: 10/25/17 20:00 Last Admin: 10/25/17 20:20 Dose: 15 mg Ondansetron HCl (Zofran) 4 mg IVP EDNOW ONE Stop: 10/25/17 20:00 Last Admin: 10/25/17 20:20 Dose: 4 mg Departure - Departure Disposition: Home, Routine, Self-Care Clinical Impression: Constipation Qualifiers: Constipation type: unspecified constipation type Qualified Code(s): K59.00 - Constipation, unspecified Condition: Fair Instructions: Constipation (ED) Referrals: NONE *PRIMARY CARE P,. [Primary Care Provider] - As per Instructions Prescriptions: Docusate Sodium [Colace] 100 mg PO TID #30 capsule
[2017-10-25 20:21] LABS: PLATELET COUNT 267 10^3/uL (150-400)
[2017-10-25 21:36] VITALS: BP 114/86
== END 2017-10-25 21:36 | disposition home or self-care (01) ==
DX: K59.00 Constipation, unspecified (principal); E86.9 Volume depletion, unspecified
CPT/HCPCS: 96374; J1885; J2405